=== PATIENT | female | born 1985 | race Two or more races ===

== ENCOUNTER 2024-11-10 20:02 | Inpatient (IN) | payer MEDICAID, SELFPAY ==
[2024-11-10 20:03] VITALS: BMI 31.2
[2024-11-10 20:30] VITALS: BP 115/79; PULSE 100; RESP 18; TEMP 37; O2SAT 95
--- NOTE | 2024-11-10 20:33 | XR_ITS ---
Examination: Transvaginal ultrasound of the pelvis, complete Technique: Transvaginal sonographic images pelvis performed using tomlinson scale imaging Exam date and time: November 10, 20242049 hours INDICATIONS: Left-sided pelvic pain with nausea beginning one year ago FINDINGS: Uterus 9.7 cm endometrial stripe 0.3 cm Multiple uterine fundal masses, the largest 15 x 14 x 15 mm Small benign cervical cyst Right ovary 2.8 cm arterial flow Left ovary 4.6 cm arterial flow 25 mm cyst IMPRESSION: Small areas of uterine fibroid degeneration, the largest in the fundus of uterus 15 x 14 x 15 mm Left ovarian simple cyst 24 x 19 x 25 mm.
--- NOTE | 2024-11-10 20:35 | PD.EDFMALE ---
ED Female Urogenital RME/HPI General Chief complaint: Abdominal Pain Stated complaint: L flank pain Time Seen by Provider: 11/10/24 20:33 Arrival date/time: 11/10/24 20:02 39F with no significant PMH presents to ED with 2 days of gradually onset L-pelvic pain. Patient denies N/V, diarrhea, dysuria, vaginal bleeding/discharge, and fall/trauma. Limitations: no limitations Related Data Allergies Allergy/AdvReac Type Severity Reaction Status Date / Time NKA* Allergy Uncoded 11/11/24 04:26 Review of Systems Review of Systems Systems Reviewed: All systems reviewed, normal except as documented Constitutional Constitutional: Reports system reviewed and no additional complaints, except as documented, Denies fever(s) and Denies headache(s) ENT Ears, Nose, Mouth, and Throat: Denies disequilibrium and Denies headache(s) Cardiovascular Cardiovascular: Reports system reviewed and no additional complaints, except as documented, Denies chest pain and Denies dyspnea Respiratory Respiratory: Reports system reviewed and no additional complaints, except as documented, Denies cough and Denies dyspnea Gastrointestinal Gastrointestinal: Reports system reviewed and no additional complaints, except as documented, Denies abdominal pain, Denies nausea and Denies vomiting Genitourinary Genitourinary: Reports as per HPI and Reports pelvic pain Neurologic Neurologic: Reports system reviewed and no additional complaints, except as documented, Denies confusion, Denies disequilibrium and Denies headache(s) Psychiatric Psychiatric: Denies confusion Past Medical History Social History SMOKING STATUS: Never smoker ED Exam General Limitations: Present no limitations General appearance: Present alert and in no apparent distress Head Head exam: Present atraumatic Eye Eye exam: Present normal appearance, PERRL and EOMI ENT ENT exam: Present normal exam, normal oropharynx and mucous membranes moist Neck Neck exam: Present normal inspection, full ROM and trachea midline Chest Chest inspection: Present normal inspection and symmetric chest wall rise Respiratory Respiratory exam: Present normal lung sounds bilaterally Cardiovascular Cardiovascular exam: Present regular rate, normal rhythm and normal heart sounds Abdominal Exam Abdominal exam: Present soft and normal bowel sounds Extremities Exam Extremities exam: Present normal inspection and full ROM Back Exam Back exam: Present normal inspection and full ROM Neurological Exam Neurological exam: Present alert, oriented X3 and CN II-XII intact Psychiatric Psychiatric exam: Present normal affect and normal mood Skin Skin exam: Present warm, dry, intact and normal color Course Quality Measures none Orders Category Date Time Status COVID-19 Screening Questionnaire NOW Care 11/11/24 17:[address] Screening NOW Care 11/10/24 22:27 Active Decision to Admit X1 Care 11/11/24 17:06 Active Insert IV NOW Care 11/10/24 22:[address] abdomen pelvis w con Stat Exams 11/10/24 22:27 Completed IR nephrostomy Stat Exams 11/11/24 Completed US transvaginal Stat Exams 11/10/24 20:33 Completed Blood Culture (Lab) Stat Lab 11/10/24 22:40 Received CBC Stat Lab 11/10/24 21:22 Completed CMP [Comprehensive Metabolic Panel] Stat Lab 11/10/24 21:22 Completed Drug Screen,Urine Stat Lab 11/10/24 22:29 Completed HCG Qualitative,Urine Stat Lab 11/10/24 22:29 Completed Lactate (Lactic Acid) Stat Lab 11/10/24 22:40 Completed Procalcitonin Stat Lab 11/10/24 22:40 Completed Urinalysis, C/S if Indicated Stat Lab 11/10/24 22:29 Completed Acetaminophen Tab [Tylenol Tab] Med 11/11/24 13:13 Discontinued 650 mg PO X1 ONE Ketorolac Inj [Toradol Inj] Med 11/11/24 01:36 Discontinued 30 mg IVP X1 ONE Lidocaine 1% Pf 30 ml [Xylocaine 1% Pf 30 ml] Med 11/11/24 14:33 Discontinued 30 ml .ROUTE .STK-MED ONE Lidocaine 1% Pf 30 ml [Xylocaine 1% Pf 30 ml] Med 11/11/24 14:56 Discontinued 5 ml INFL X1 ONE Morphine Inj Med 11/10/24 22:27 Discontinued 5 mg IVP X1 ONE NALOXONE INJ (Vial) [Narcan Inj (Vial)] Med 11/11/24 14:34 Discontinued 0.4 mg .ROUTE .STK-MED ONE Ondansetron Inj [Zofran Inj] Med 11/11/24 14:34 Discontinued 4 mg .ROUTE .STK-MED ONE Ondansetron Inj [Zofran Inj] Med 11/10/24 22:27 Discontinued 4 mg IV X1 ONE Piper/Tazo 3.375 gm Premix [Zosyn] Med 11/11/24 13:13 Discontinued 3.375 gm in 50 ml IV X1 Ringers Lactated 1000 ml [Lactated Ringers] 1,000 ml Med 11/11/24 03:01 Discontinued IV 125 mls/hr Sodium Chloride 0.9% 1000 ml [Ns] 1,000 ml Med 11/11/24 13:15 Active IV 125 mls/hr Sodium Chloride 0.9% 1000 ml [Ns] 1,000 ml Med 11/11/24 02:50 Discontinued IV 250 mls/hr Sodium Chloride 0.9% 1000 ml [Ns] 1,000 ml Med 11/10/24 22:27 Discontinued IV 999 mls/hr Tamsulosin HCl [Flomax] Med 11/11/24 04:35 Discontinued 0.4 mg PO X1 ONE cefTRIAXone [Rocephin] 2 gm Med 11/11/24 17:14 Active SODIUM CHLORIDE 0.9% (Popper) [Ns 0.9% (P)] 50 ml IV QDAY cefTRIAXone/D5w 1gm IV premix [Rocephin/D5w 1gm IV Med 11/11/24 01:41 Discontinued premix] 1 gm in 50 ml IV X1 fentaNYL INJ [Sublimaze Inj] Med 11/11/24 14:50 Discontinued 100 mcg IVP X1 ONE fentaNYL INJ [Sublimaze Inj] Med 11/11/24 14:34 Discontinued 200 mcg .ROUTE .STK-MED ONE Vital Signs Vital signs: Vital Signs Temperature 98.6 F 11/10/24 20:30 Pulse Rate 100 11/10/24 20:30 Respiratory Rate 18 11/10/24 20:30 Blood Pressure 115/79 11/10/24 20:30 Pulse Oximetry (%) 95 11/10/24 20:30 Oxygen Delivery Method Room Air 11/10/24 20:30 O2 at 95% on RA and WNLs Urogenital - Female MDM Narrative MDM Narrative:: 39F with no significant PMH presents to ED with 2 days of gradually onset L-pelvic pain. Patient denies N/V, diarrhea, dysuria, vaginal bleeding/discharge, and fall/trauma. Physical exam reveals no CVA or ab tenderness. Patient is afebrile, calm, and alert. Leukocytosis of 26k. Procal/lactate normal. CMP normal though Cr is 1.2. UA suggests UTI. CT reveals 1.4 x 0.7 L-sided kidney stone with hydronephrosis. Despite multiple attempts at transfer, patient was eventually admitted. Patient data External records reviewed:: None Clinical information provided by:: patient Social determinants that could affect healthcare access:: none Patient has the following chronic illnesses:: none How is presenting disease/condition affected by chronic disease/condition?: no chronic disease Evaluation data The following diagnostics were reviewed and interpreted by me:: lab results and radiology exam(s) Lab and/or radiology exams considered but not ordered:: ordered Interpretation Summary: above Medications / Prescriptions Medications or Prescriptions considered but not ordered:: ordered Medication administrations:: Medication Administration History Acetaminophen (Acetaminophen 325 Mg Tablet) 650 mg PO Q6H PRN PRN Reason: PAIN 1-3 OR FEVER > 100.4 Stop: 12/11/24 17:14 Sodium Chloride (Ns) 1,000 mls @ 125 mls/hr IV .Q8H [facility] Stop: 12/11/24 13:14 Last Admin: 11/11/24 13:41 Dose: 125 mls/hr Documented By: VISHAL Ceftriaxone Sodium 2 gm/ (Sodium Chloride) 50 mls @ 100 mls/hr IV QDAY CATRACHITA Stop: 11/18/24 17:13 Last Infusion: 11/11/24 17:56 Dose: Infused Documented By: Admin: 11/11/24 17:29 Dose: 100 mls/hr Documented By: VISHAL Morphine Sulfate (Morphine Sulf Inj 10 Mg/Ml Vial) 2 mg IVP Q6HR PRN PRN Reason: pain 6-10 Stop: 11/16/24 18:12 Ondansetron HCl (Ondansetron Inj 2 Mg/Ml Inj 2 Ml) 4 mg IVP Q6H PRN; Protocol PRN Reason: NAUSEA OR VOMITING Stop: 12/11/24 17:14 Discontinued Medications Acetaminophen (Acetaminophen 325 Mg Tablet) 650 mg PO X1 ONE Stop: 11/11/24 13:14 Last Admin: 11/11/24 13:39 Dose: 650 mg Documented By: VISHAL Fentanyl Citrate (Fentanyl Cit Inj 50 Mcg/Ml Amp 2ml) Confirm Administered Dose 200 mcg .ROUTE .STK-MED ONE Stop: 11/11/24 14:35 Last Admin: 11/11/24 14:54 Dose: Not Given Documented By: Non-Admin Reason: Duplicate Medication on eMAR Fentanyl Citrate (Fentanyl Cit Inj 50 Mcg/Ml Amp 2ml) 100 mcg IVP X1 ONE Stop: 11/11/24 14:51 Last Admin: 11/11/24 14:52 Dose: 100 mcg Documented By: Sodium Chloride (Ns) 1,000 mls @ 999 mls/hr IV .Q1H1M ONE Stop: 11/10/24 23:27 Last Infusion: 11/11/24 04:30 Dose: Infused Documented By: Admin: 11/11/24 00:24 Dose: 999 mls/hr Documented By: Ceftriaxone Sodium/Dextrose (Rocephin/D5w 1gm Iv Premix) 1 gm in 50 mls @ 100 mls/hr IV X1 ONE Stop: 11/11/24 02:10 Last Infusion: 11/11/24 03:54 Dose: Infused Documented By: Admin: 11/11/24 01:54 Dose: 100 mls/hr Documented By: NÉSTOR Sodium Chloride (Ns) 1,000 mls @ 250 mls/hr IV .Q4H ONE Stop: 11/11/24 06:49 Last Admin: 11/11/24 03:52 Dose: Not Given Documented By: RON Non-Admin Reason: Discontinued Lactated Ringer's (Lactated Ringers) 1,000 mls @ 125 mls/hr IV .Q8H ONE Stop: 11/11/24 11:00 Last Infusion: 11/11/24 08:44 Dose: Infused Documented By: Infusion: 11/11/24 05:34 Dose: 500 mls/hr Documented By: Admin: 11/11/24 04:30 Dose: 125 mls/hr Documented By: MIKE Piperacillin/Tazobactam/Dextrose (Zosyn) 3.375 gm in 50 mls @ 100 mls/hr IV X1 ONE Stop: 11/11/24 13:42 Last Infusion: 11/11/24 14:20 Dose: Infused Documented By: Admin: 11/11/24 13:40 Dose: 100 mls/hr Documented By: VISHAL Ketorolac Tromethamine (Ketorolac Inj 30 Mg/Ml Vial) 30 mg IVP X1 ONE Stop: 11/11/24 01:37 Last Admin: 11/11/24 01:53 Dose: 30 mg Documented By: NÉSTOR Ketorolac Tromethamine (Ketorolac Inj 30 Mg/Ml Vial) 30 mg IVP Q6HR PRN PRN Reason: PAIN SCALE 4-6 (Moderate Stop: 11/16/24 17:14 Lidocaine HCl (Lidocaine Inj Pf 1% 30 Ml Vial) Confirm Administered Dose 30 ml .ROUTE .STK-MED ONE Stop: 11/11/24 14:34 Last Admin: 11/11/24 14:53 Dose: Not Given Documented By: Non-Admin Reason: Duplicate Medication on eMAR Lidocaine HCl (Lidocaine Inj Pf 1% 30 Ml Vial) 5 ml INFL X1 ONE Stop: 11/11/24 14:57 Last Admin: 11/11/24 14:56 Dose: 5 ml Documented By: Comments: administer as local anesthetic Morphine Sulfate (Morphine Sulf Inj 10 Mg/Ml Vial) 5 mg IVP X1 ONE Stop: 11/10/24 22:28 Last Admin: 11/11/24 00:23 Dose: 5 mg Documented By: Naloxone HCl (Naloxone Inj 0.4 Mg/Ml Vial) Confirm Administered Dose 0.4 mg .ROUTE .STK-MED ONE Stop: 11/11/24 14:35 Last Admin: 11/11/24 14:54 Dose: Not Given Documented By: Non-Admin Reason: Duplicate Medication on eMAR Ondansetron HCl (Ondansetron Inj 2 Mg/Ml Inj 2 Ml) 4 mg IV X1 ONE; Protocol Stop: 11/10/24 22:28 Last Admin: 11/11/24 00:17 Dose: 4 mg Documented By: Ondansetron HCl (Ondansetron Inj 2 Mg/Ml Inj 2 Ml) Confirm Administered Dose 4 mg .ROUTE .STK-MED ONE Stop: 11/11/24 14:35 Last Admin: 11/11/24 14:54 Dose: Not Given Documented By: Non-Admin Reason: Duplicate Medication on eMAR Tamsulosin HCl (Tamsulosin Hcl 0.4 Mg Capsule) 0.4 mg PO X1 ONE Stop: 11/11/24 04:36 Last Admin: 11/11/24 04:42 Dose: 0.4 mg Documented By: MIKE above Consultations Consultation(s) initiated? (list below): Yes Diagnosis Urogenital Female Differential Diagnosis: urinary tract infection, bacterial vaginosis, trichomoniasis, cervicitis, ovarian cyst, vaginitis, ruptured ovarian cyst, cyst of Bartholin's gland, cystitis, dysmenorrhea and other (kidney stone, UTI) Most likely diagnosis given after review of the tests above:: Pyelonephritis and kidney stone Admission Indicated Admission indicated?: indicated Admission Request Was there a request for admission?: Yes Admission Attestation Admission request attestation: Discussed case with [IM Resident (see addendum note)] from Hospitalist service regarding admission. Discussed patients ED course, exam findings, labs, and radiology results. The Hospitalist [agrees] to accept the patient for admission. Disposition Plan Disposition Plan: Admit Discharge Plan Plan Patient Disposition: Admit Acute Care w/in Hospital Discharge Disposition comment: Stable Problem List Clinical Impression: Pyelonephritis Patient/Caregiver Discharge Instructions Other Activity Instructions:: Please follow up with Dr. Derick Hoover urologist on Saturday November 16, 2024 at 0900am. Address [address] [place] [address]. Office number [phone].
[2024-11-10 21:33] LABS: Basophils # (Auto) 0.1 Thou/mm3 (0.0-0.2); Basophils % (Auto) 0 % (0-2.5); Eosinophils % (Auto) 0 % (0-10); Hematocrit 40.5 % (36.0-46.0); Immature Granulocytes % (Auto) 1 % (0-0); Immature Granulocytes Auto 0.12 Thou/mm3 (0.00-0.00); Lymphocytes # (Auto) 1.6 Thou/mm3 (1.0-4.8); Lymphocytes % (Auto) 6 % (10-50); Mean Corpuscular HGB Conc 34.6 g/dl (31.0-37.0); Mean Corpuscular Hemoglobin 30.2 pg (25.0-35.0); Mean Corpuscular Volume 88 fL (80-100); Monocytes # (Auto) 1.2 Thou/mm3 (0.0-0.8); Monocytes % (Auto) 5 % (0-12); Neutrophils # (Auto) 23.2 Thou/mm3 (1.8-7.7); Neutrophils % (Auto) 89 % (37-80); Nucleated Red Blood Cell % 0 /100 WBC (0); Platelet Count 292 Thou/mm3 (140-440); RDW Standard Deviation 41.4 fL (36.4-46.3); Red Blood Count 4.63 Miln/mm3 (4.00-5.20); White Blood Count 26.2 Thou/mm3 (3.6-11.0)
[2024-11-10 22:05] LABS: Albumin, Serum 4.6 gm/dL (3.5-5.0); Albumin/Globulin Ratio 1.4 (1.2-2.2); Alkaline Phosphatase 67 U/L (46-116); Anion Gap 9 (7-16); Aspartate Amino Transferase 12 U/L (0-34); BUN/Creatinine Ratio 9 Ratio (12-20); Bilirubin,Total 1.1 mg/dL (0.3-1.2); Blood Urea Nitrogen 11 mg/dL (9-23); Calcium 8.7 mg/dL (8.3-10.6); Calcium (Corrected) 8.7 mg/dL (8.5-10.1); Carbon Dioxide 25.8 mMol/L (20.0-31.0); Chloride 104 mMol/L (98-107); Creatinine (Component) 1.2 mg/dL (0.6-1.3); Estimated Creatinine Clearance 56.5 mL/min (>60); Globulin 3.3 gm/dL (2.3-3.5); Glucose 139 mg/dL (74-106); Osmolality,Calculated 278 (275-295); Potassium 4.2 mMol/L (3.4-5.1); Sodium 139 mMol/L (136-145); Total Protein 7.9 gm/dL (5.7-8.2); eGFR 59 See Note
[2024-11-10 22:11] LABS: Alanine Aminotransferase 7 U/L (10-49)
--- NOTE | 2024-11-10 22:27 | XR_ITS ---
Examination: CT abdomen with intravenous contrast CT pelvis with intravenous contrast 2-D coronal reconstructions 2-D sagittal reconstructions Date and time of exam:November 11, 2024 0107 hours INDICATIONS: Onset of flank pain today. CTDI: vol (mGy) 14 DLP: (mGycm) 755 Technique: Multiple axial sections of the abdomen and pelvis have been obtained. 64 slice high-resolution scanner used. 3 mm axial sections have been obtained, post intravenous injection 60 cc Isovue 370 2-D sagittal, coronal reconstructions obtained. Low dose protocols were performed. One or more of the following dose reduction techniques were used; automated exposure control, adjustment of the mA and/or KV according to patient size, use of iterative reconstruction technique. Findings: No focal liver or splenic lesions Suspicious for gallstones No pancreatic mass [id number] left hydronephrosis, 12 mm left ureteropelvic junction calculus Aorta normal size Normal appendix No bowel obstruction 23 mm left ovarian cyst Urinary bladder intact The osseous structures are intact IMPRESSION: [id number] left hydronephrosis, 12 mm left ureteropelvic junction calculus
[2024-11-10 22:36] LABS: Collection Type, Urine Clean Catch
[2024-11-10 22:54] LABS: HCG Qualitative,Urine Negative
[2024-11-10 23:01] LABS: Bilirubin,Urine Negative (Negative); Blood,Urine 1+ (Negative); Clarity,Urine Turbid (Clear/Hazy); Color,Urine Yellow (Lt Yel-Yel); Culture Indicated,Urine Contaminated; Glucose, Urine Negative (Negative); Ketones,Urine Negative (Negative); Leukocyte Esterase,Urine Positive (Negative); Nitrite,Urine Negative (Negative); PH,Urine 6.5 (5.0-7.0); Protein,Urine 1+ (Neg - Trace); RBC,Urine 33 /hpf (0-3); Specific Gravity,Urine 1.047 (1.001-1.035); Squamous Epithelial Cell,Urine 17 /hpf (0-5); WBC,Urine 198 /hpf (0-5)
[2024-11-10 23:14] LABS: Amphetamine/Methamp Scrn,U Negative (Negative); Barbiturate Screen,Urine Negative (Negative); Benzodiazepines Screen,Urine Negative (Negative); Benzoylecgonine Screen, Ur Negative (Negative); Fentanyl Screen,Urine Negative (Negative); Opiate Screen,Urine Positive (Negative); THC Screen,Urine Negative (Negative)
[2024-11-10 23:17] LABS: Lactate (Lactic Acid) 1.4 mMol/L (0.4-2.0)
[2024-11-10 23:43] LABS: Procalcitonin 0.24 ng/ml (0.0-0.49)
[2024-11-11] VITALS (40 sets, daily range): BP systolic 86–142; BP diastolic 46–89; PULSE 85–117; RESP 16–21; TEMP 36.3–37.9; O2SAT 92–100; BMI 35.5
--- NOTE | 2024-11-11 | XR_ITS ---
Examination: Left percutaneous nephrostomy catheter placement Left nephrostogram Fluoroscopy AP abdomen 2 views Exam date and time: November 11, 2024 1359 hours INDICATIONS: Left hydronephrosis secondary to 12 mm left ureteropelvic junction calculus on CT stone study November 11, 2024, flank pain and leukocytosis today risk for sepsis TECHNIQUE AND FINDINGS: Informed consent provided. Timeout performed. Skin prepped over the left flank sterile drape applied maximum sterile barrier technique hand hygiene 1% lidocaine administered for local anesthesia Utilizing fluoroscopic guidance 21-gauge needle placed in the left renal collecting system Wire guide placed through the catheter followed by 5 Serbian catheter 0.35 wire guide placed through the 5 Serbian catheter, followed by dilator is and a 10 Serbian 25 cm pigtail nephrostomy drainage catheter in proper position Hand injection 10 cc Cystografin confirms proper placement of the nephrostomy drainage catheter Estimated blood loss 2 cc Patient stable condition at completion procedure IMPRESSION: Successful left percutaneous nephrostomy drainage catheter placement Left nephrostogram Fluoroscopy 2.2 minutes radiation dose 42.82 milligray 2 spot fluoroscopic abdomen films
[2024-11-11] MEDS: ONDANSETRON INJ 2 MG/ML INJ 2 ML 4 MG IV (00:17)
[2024-11-11] MEDS: MORPHINE SULF INJ 10 MG/ML VIAL 5 MG IVP (00:23)
[2024-11-11] MEDS: SODIUM CHLORIDE 0.9% 1000 ML 1,000 ML 999 ML IV (00:24)
[2024-11-11] MEDS: KETOROLAC INJ 30 MG/ML VIAL IVP (01:53)
[2024-11-11] MEDS: cefTRIAXone/D5w 1gm IV premix 1 GM/50 ML BAG IV (01:54)
--- NOTE | 2024-11-11 02:15 | PRELIM_ITS ---
CT abdomen and pelvis with intravenous contrast (axial sections with sagittal and coronal reformats): November 11, 2024 at 0107 hours Clinical History: Left-sided abdomen/pelvic pain. No prior study is available for comparison. Findings: The lung bases are clear. There is a 1.4 x 0.7 cm linear calculus at the left ureteropelvic junction with moderate hydronephrosis and periureteric/perinephric fat stranding. The liver, spleen, pancreas and adrenals are unremarkable.There are dependent hyperdensities in the gallbladder neck which may represent sludge/calculi without wall thickening or pericholecystic fluid. No evidence of bowel dilatation. The appendix is within normal limits. The urinary bladder is unremarkable. There is no free air or fluid. There is a 2.4 cm left ovarian cyst. Mild degenerative changes are identified in the spine. Impression: 1.4 x 0.7 cm linear calculus at the left ureteropelvic junction with moderate hydronephrosis. No other acute intra-abdominal/pelvic pathology. Other findings as above. Report Electronically Signed By: Lauro Anderson 11/11/2024 2:15:32 AM [EST]
--- NOTE | 2024-11-11 03:56 | PC.NURSE ---
I PLACED A CALL TO TRANSFER CENTER AND SPOKE WITH LULU. LULU INFORMED ME THAT THEY DO NOT HAVE UROLOGY TILL THE OF THIS MONTH.
[2024-11-11] MEDS: RINGERS LACTATED 1000 ML 1,000 ML 125 ML IV (04:30)
[2024-11-11] MEDS: TAMSULOSIN HCL 0.4 MG CAPSULE PO (04:42)
--- NOTE | 2024-11-11 05:33 | PC.NURSE ---
per. [place] chavarria change rate lr 500 ml/hr as he was concerned with b/p
--- NOTE | 2024-11-11 07:19 | PC.CC ---
Addendum entered by Walker Wood RN 11/11/24 14:41: I update follow up information on discharge which is Please follow up with Dr. Derick Hoover urologist on Saturday November 16, 2024 at 0900am. Address [address] [place] [address]. Office number [phone]. Addendum entered by Walker Wood RN 11/11/24 14:39: 1436 spoke to Rubén JEFFERY regarding the tranfser. Rubén stated pt will be admitted and IR will place a nephrostomy tube. Patient will follow up with Dr. Derick Hoover on Saturday November 16, 2024 at 0900am. Transfer is canceled. Addendum entered by Walker Wood RN 11/11/24 14:05: 1351 I called and informed Rubén JEFFERY. He stated he will discuss with ER physician and let me know on how to proceed. 1348 received call from [facility] that Dr. Derick Hoover accepted to see the pt as outpatient on Saturday November 16, 2024 at 0900am. Address [address] [place] [address]. Office number [phone]. She also stated she is going to send the referral to office so that they can schedule the pt for that day and time. She also stated Dr. Hoover recommended to start patient on Bacrim DS 1 tab PO twice a day for 10 days. Therefore, transfer is declined. 1332 received call from Azucena at [facility] that their urologist Dr. Arnold recommended to treat the infection first and pt can see urology as outpatient, IR can place a nephrstomy tube. Therefore, transfer is declined. Addendum entered by Walker Wood RN 11/11/24 13:12: 1307 Received call from [facility], spoke to Azucena and initiated the transfer. She stated she wants to speak to Mavis JEFFERY. Conference call connected. Addendum entered by Walker Wood RN 11/11/24 13:04: 1302 called [facility] to initiate the transfe, left VM. Addendum entered by Walker Wood RN 11/11/24 12:38: 1238 images pushed over to [facility] via [facility]. Addendum entered by Walker Wood RN 11/11/24 12:36: 1236 clinicals sent to [facility]. Addendum entered by Walker Wood RN 11/11/24 12:07: 1206 called [facility], spoke to [place] for transfer update. She stated currently the case is under MD review. Addendum entered by Walker Wood RN 11/11/24 10:24: 1021 called Clarisa at [facility]. Connected Clarisa with Rubén JEFFERY via conference call. [address] Pagan and he informed me Rubén JEFFERY is person for peer to peer. Addendum entered by Walker Wood RN 11/11/24 10:11: 1010 email clinicals to Warsaw at [facility]. Addendum entered by Walker Wood RN 11/11/24 10:05: 1002 Clarisa from [facility] called again and stated they are having technical difficulties with their fax and want me to send clinicals via email. I provided her with my email to request for clinicals. 1002 called Clarisa at [facility] to confirm if she got the fax and she stated didn't. I informed her it was send on regular fax and efax both. I have the confirmation it was sent at 0759. I confirmed both numbers which she stated it's correct. I resent the fax. I also tried connecting Dr. Pagan again with her, tried twice ER minute clerk for basic traffic, no answer. Addendum entered by Walker Wood RN 11/11/24 08:15: 0807 called [facility], spoke to [place] and initiated the transfer. She stated she wants to speak to Dr. Pagan. Dr. Pagan is not available at this time, unable to connect. Addendum entered by Walker Wood RN 11/11/24 07:55: 0755 clinicals sent to [facility]. Addendum entered by Walker Wood RN 11/11/24 07:50: 0729 CT abd/pevic report came back and it shows [id number] left hydronephrosis, 12 mm left ureteropelvic junction calculus. Original Note: 0724 spoke to Shirley at [facility], pt is declined due to capacity. 0722 From the notes, I found pt is declined by [facility] due to no services available. 0719 spoke to ED charge nurse, pt needs to be transferred for urology services. Pt has 4-5 mm calculus in left urethral vesicular junction.
--- NOTE | 2024-11-11 08:14 | EDNOTE_ITS ---
ED Abdominal Pain RME/HPI General Chief Complaint: Abdominal Pain Stated complaint: L flank pain Time seen by provider: 11/10/24 20:33 Arrival date/time: 11/10/24 20:02 39-year-old female with no known medical history presents to the emergency room with a chief complaint of left flank pain and groin pain x 3 days Source: patient Mode of arrival: ambulatory Limitations: no limitations Related Data Allergies Allergy/AdvReac Type Severity Reaction Status Date / Time NKA* Allergy Uncoded 11/11/24 04:26 Review of Systems Review of Systems Systems Reviewed: All systems reviewed, normal except as documented Constitutional Constitutional: Reports system reviewed and no additional complaints, except as documented, Reports fatigue, Reports fever(s), Denies headache(s) and Reports weakness Eyes Eyes: Reports system reviewed and no additional complaints, except as documented, Denies blurry vision and Denies change in vision ENT Ears, Nose, Mouth, and Throat: Reports system reviewed and no additional complaints, except as documented, Denies otalgia, Denies headache(s), Denies nasal congestion, Denies throat swelling and Denies vertigo Cardiovascular Cardiovascular: Reports system reviewed and no additional complaints, except as documented, Denies chest pain, Denies dyspnea and Denies dyspnea on exertion Respiratory Respiratory: Reports system reviewed and no additional complaints, except as documented, Denies chest congestion, Denies cough, Denies dyspnea, Denies dyspnea on exertion and Denies wheezing Gastrointestinal Gastrointestinal: Reports system reviewed and no additional complaints, except as documented, Denies abdominal pain, Denies cramping, Denies nausea and Denies vomiting Genitourinary Genitourinary: Reports system reviewed and no additional complaints, except as documented Musculoskeletal Musculoskeletal: Reports system reviewed and no additional complaints, except as documented and Reports back pain Integumentary/Breasts Skin/Breast: Reports system reviewed and no additional complaints, except as documented and Denies wounds Neurologic Neurologic: Reports system reviewed and no additional complaints, except as documented, Denies confusion, Denies headache(s), Denies lack of coordination, Denies vertigo and Reports weakness Psychiatric Psychiatric: Reports system reviewed and no additional complaints, except as d ocumented, Denies anxiety, Denies confusion, Denies depression, Denies paranoia, Denies suicidal ideation and Denies tactile hallucinations Endocrine Endocrine: Reports system reviewed and no additional complaints, except as documented and Reports fatigue Hematologic/Lymphatic Hematologic/Lymphatic: Reports system reviewed and no additional complaints, except as documented and Denies lymphadenopathy Allergic/Immunologic Allergic/Immunologic: Reports system reviewed and no additional complaints, except as documented, Denies throat swelling, Denies urticaria and Denies wheezing Past Medical History Past Medical History CARDIAC: Negative Cardiac Disorders or Congestive Heart Failure RESPIRATORY: Negative Chronic Obstructive Pulmonary Disease (COPD) or Asthma GENITOURINARY: Negative Renal Disease ENDOCRINE: Negative Diabetes Mellitus Type 1 or Diabetes Mellitus Type 2 HEMATOLOGIC: Negative Sickle Cell Disease Social History SMOKING STATUS: Never smoker ED Exam General Limitations: Present no limitations General appearance: Present alert and in no apparent distress Head Head exam: Present atraumatic Eye Eye exam: Present normal appearance, PERRL and EOMI ENT ENT exam: Present normal exam, normal oropharynx and mucous membranes moist Neck Neck exam: Present normal inspection, full ROM and trachea midline Chest Chest inspection: Present normal inspection and symmetric chest wall rise Respiratory Respiratory exam: Present normal lung sounds bilaterally Cardiovascular Cardiovascular exam: Present regular rate, normal rhythm and normal heart sounds Abdominal Exam Abdominal exam: Present soft and normal bowel sounds Extremities Exam Extremities exam: Present normal inspection and full ROM Back Exam Back exam: Present normal inspection, full ROM, CVA tenderness (L) and vertebral tenderness Neurological Exam Neurological exam: Present alert, oriented X3 and CN II-XII intact Psychiatric Psychiatric exam: Present normal affect and normal mood Skin Skin exam: Present warm, dry, intact and normal color Course Quality Measures none Orders Category Date Time Status Admit to Inpatient Status Routine Admission 11/11/24 17:14 Active Patient Condition Routine Admission 11/11/24 17:14 Ordered COVID-19 Screening Questionnaire NOW Care 11/11/24 17:[address] Screening NOW Care 11/10/24 22:27 Active Decision to Admit X1 Care 11/11/24 17:06 Active Insert IV NOW Care 11/10/24 22:26 Active Notify provider NEEDED Care 11/11/24 17:14 Active Sequential Compression Device QSHIFT Care 11/11/24 17:15 Active Diet Regular Diet 11/11/[address] abdomen pelvis w con Stat Exams 11/10/24 22:27 Completed IR nephrostomy Stat Exams 11/11/24 Completed US transvaginal Stat Exams 11/10/24 20:33 Completed A1C [Glycohemoglobin w (eAG)] AM DRAW Lab 11/12/24 05:00 Ordered Basic Metabolic Panel AM DRAW Lab 11/12/24 05:00 Ordered Basic Metabolic Panel AM DRAW Lab 11/13/24 05:00 Ordered Basic Metabolic Panel AM DRAW Lab 11/14/24 05:00 Ordered Blood Culture (Lab) Stat Lab 11/10/24 22:40 Received CBC AM DRAW Lab 11/12/24 05:00 Ordered CBC AM DRAW Lab 11/13/24 05:00 Ordered CBC AM DRAW Lab 11/14/24 05:00 Ordered CBC Stat Lab 11/10/24 21:22 Completed CMP [Comprehensive Metabolic Panel] Stat Lab 11/10/24 21:22 Completed Drug Screen,Urine Stat Lab 11/10/24 22:29 Completed HCG Qualitative,Urine Stat Lab 11/10/24 22:29 Completed Lactate (Lactic Acid) Stat Lab 11/10/24 22:40 Completed Lipid Panel AM DRAW Lab 11/12/24 05:00 Ordered Magnesium AM DRAW Lab 11/12/24 05:00 Ordered Magnesium AM DRAW Lab 11/13/24 05:00 Ordered Magnesium AM DRAW Lab 11/14/24 05:00 Ordered Phosphorous AM DRAW Lab 11/12/24 05:00 Ordered Phosphorous AM DRAW Lab 11/13/24 05:00 Ordered Phosphorous AM DRAW Lab 11/14/24 05:00 Ordered Procalcitonin Stat Lab 11/10/24 22:40 Completed Urinalysis, C/S if Indicated Stat Lab 11/10/24 22:29 Completed Urine Culture Stat Lab 11/11/24 17:12 Ordered Acetaminophen Tab [Tylenol Tab] Med 11/11/24 17:15 Ordered 650 mg PO Q6H PRN Acetaminophen Tab [Tylenol Tab] Med 11/11/24 13:13 Discontinued 650 mg PO X1 ONE Ketorolac Inj [Toradol Inj] Med 11/11/24 17:15 Ordered 30 mg IVP Q6HR PRN Ketorolac Inj [Toradol Inj] Med 11/11/24 01:36 Discontinued 30 mg IVP X1 ONE Lidocaine 1% Pf 30 ml [Xylocaine 1% Pf 30 ml] Med 11/11/24 14:33 Discontinued 30 ml .ROUTE .STK-MED ONE Lidocaine 1% Pf 30 ml [Xylocaine 1% Pf 30 ml] Med 11/11/24 14:56 Discontinued 5 ml INFL X1 ONE Morphine Inj Med 11/10/24 22:27 Discontinued 5 mg IVP X1 ONE NALOXONE INJ (Vial) [Narcan Inj (Vial)] Med 11/11/24 14:34 Discontinued 0.4 mg .ROUTE .STK-MED ONE Ondansetron Inj [Zofran Inj] Med 11/11/24 14:34 Discontinued 4 mg .ROUTE .STK-MED ONE Ondansetron Inj [Zofran Inj] Med 11/10/24 22:27 Discontinued 4 mg IV X1 ONE Ondansetron Inj [Zofran Inj] Med 11/11/24 17:15 Ordered 4 mg IVP Q6H PRN Piper/Tazo 3.375 gm Premix [Zosyn] Med 11/11/24 13:13 Discontinued 3.375 gm in 50 ml IV X1 Ringers Lactated 1000 ml [Lactated Ringers] 1,000 ml Med 11/11/24 03:01 Discontinued IV 125 mls/hr Sodium Chloride 0.9% 1000 ml [Ns] 1,000 ml Med 11/11/24 13:15 Active IV 125 mls/hr Sodium Chloride 0.9% 1000 ml [Ns] 1,000 ml Med 11/11/24 02:50 Discontinued IV 250 mls/hr Sodium Chloride 0.9% 1000 ml [Ns] 1,000 ml Med 11/10/24 22:27 Discontinued IV 999 mls/hr Tamsulosin HCl [Flomax] Med 11/11/24 04:35 Discontinued 0.4 mg PO X1 ONE cefTRIAXone [Rocephin] 2 gm Med 11/11/24 17:14 Active SODIUM CHLORIDE 0.9% (Popper) [Ns 0.9% (P)] 50 ml IV QDAY cefTRIAXone/D5w 1gm IV premix [Rocephin/D5w 1gm IV Med 11/11/24 01:41 Discontinued premix] 1 gm in 50 ml IV X1 fentaNYL INJ [Sublimaze Inj] Med 11/11/24 14:50 Discontinued 100 mcg IVP X1 ONE fentaNYL INJ [Sublimaze Inj] Med 11/11/24 14:34 Discontinued 200 mcg .ROUTE .STK-MED ONE Code Status Routine Oth 11/11/24 17:14 Ordered Vital Signs Vital signs: Vital Signs Temperature 98.6 F 11/10/24 20:30 Pulse Rate 100 11/10/24 20:30 Respiratory Rate 18 11/10/24 20:30 Blood Pressure 115/79 11/10/24 20:30 Pulse Oximetry (%) 95 11/10/24 20:30 Oxygen Delivery Method Room Air 11/10/24 20:30 O2 saturation 95% within normal limits Abdominal Pain MDM MDM Narrative MDM Narrative:: 39-year-old female with no known medical history presents to the emergency room with a chief complaint of left flank pain and groin pain x 3 days The patient is hemodynamically stable. The patient was signed out to me by my colleague STUDIO ARTIST BATEMAN The CT abdomen and pelvis of this patient shows a 12 mm stone to the left ureter. The stone is causing the patient to have left-sided hydronephrosis. The patient has a white count of 26.2. Multiple attempts were made to transfer this patient for urology. [facility] in [place] called me back and according to the transfer nurse Dr. Villeda the urologist at [facility] states that this patient does not need transfer and instead needs IR nephrostomy which could be done here as he review. He recommends treating the infection and to follow-up with urology as an outpatient. I spoke to Dr. Hart our IR DrLuli And he will do the nephrostomy tube. The transfer nurse then called me and said that urologist Keenan Hoover will see the patient on November 16Thursday at 9 AM. The phone number is [phone]. The address is [address] [place] [address] Hoover also recommended the patient be put on Bactrim p.o. twice daily for [address] Dr[address] Ian Lawrence was contacted for admission and they will admit the patient for IV antibiotics. Patient data External records reviewed:: [facility] previous records Clinical information provided by:: patient Social determinants that could affect healthcare access:: none Patient has the following chronic illnesses:: No chronic illness How is presenting disease/condition affected by chronic disease/condition?: no chronic disease Evaluation data The following diagnostics were reviewed and interpreted by me:: lab results and radiology exam(s) Lab and/or radiology exams considered but not ordered:: Labs and radiology exams considered and ordered Interpretation Summary: CT abdomen and pelvis-Findings: No focal liver or splenic lesions Suspicious for gallstones No pancreatic mass [id number] left hydronephrosis, 12 mm left ureteropelvic junction calculus Aorta normal size Normal appendix No bowel obstruction 23 mm left ovarian cyst Urinary bladder intact The osseous structures are intact IMPRESSION: [id number] left hydronephrosis, 12 mm left ureteropelvic junction calculus Medications / Prescriptions Medications or Prescriptions considered but not ordered:: Medication given Medication administrations:: Medication Administration History Acetaminophen (Acetaminophen 325 Mg Tablet) 650 mg PO Q6H PRN PRN Reason: PAIN 1-3 OR FEVER > 100.4 Stop: 12/11/24 17:14 Sodium Chloride (Ns) 1,000 mls @ 125 mls/hr IV .Q8H CATRACHITA Stop: 12/11/24 13:14 Last Admin: 11/11/24 13:41 Dose: 125 mls/hr Documented By: VISHAL Ceftriaxone Sodium 2 gm/ (Sodium Chloride) 50 mls @ 100 mls/hr IV QDAY CATRACHITA Stop: 11/18/24 17:13 Ketorolac Tromethamine (Ketorolac Inj 30 Mg/Ml Vial) 30 mg IVP Q6HR PRN PRN Reason: PAIN SCALE 4-6 (Moderate Stop: 11/16/24 17:14 Ondansetron HCl (Ondansetron Inj 2 Mg/Ml Inj 2 Ml) 4 mg IVP Q6H PRN; Protocol PRN Reason: NAUSEA OR VOMITING Stop: 12/11/24 17:14 Discontinued Medications Acetaminophen (Acetaminophen 325 Mg Tablet) 650 mg PO X1 ONE Stop: 11/11/24 13:14 Last Admin: 11/11/24 13:39 Dose: 650 mg Documented By: VISHAL Fentanyl Citrate (Fentanyl Cit Inj 50 Mcg/Ml Amp 2ml) Confirm Administered Dose 200 mcg .ROUTE .STK-MED ONE Stop: 11/11/24 14:35 Last Admin: 11/11/24 14:54 Dose: Not Given Documented By: Non-Admin Reason: Duplicate Medication on eMAR Fentanyl Citrate (Fentanyl Cit Inj 50 Mcg/Ml Amp 2ml) 100 mcg IVP X1 ONE Stop: 11/11/24 14:51 Last Admin: 11/11/24 14:52 Dose: 100 mcg Documented By: Sodium Chloride (Ns) 1,000 mls @ 999 mls/hr IV .Q1H1M ONE Stop: 11/10/24 23:27 Last Infusion: 11/11/24 04:30 Dose: Infused Documented By: Admin: 11/11/24 00:24 Dose: 999 mls/hr Documented By: Ceftriaxone Sodium/Dextrose (Rocephin/D5w 1gm Iv Premix) 1 gm in 50 mls @ 100 mls/hr IV X1 ONE Stop: 11/11/24 02:10 Last Infusion: 11/11/24 03:54 Dose: Infused Documented By: Admin: 11/11/24 01:54 Dose: 100 mls/hr Documented By: NÉSTOR Sodium Chloride (Ns) 1,000 mls @ 250 mls/hr IV .Q4H ONE Stop: 11/11/24 06:49 Last Admin: 11/11/24 03:52 Dose: Not Given Documented By: RON Non-Admin Reason: Discontinued Lactated Ringer's (Lactated Ringers) 1,000 mls @ 125 mls/hr IV .Q8H ONE Stop: 11/11/24 11:00 Last Infusion: 11/11/24 08:44 Dose: Infused Documented By: Infusion: 11/11/24 05:34 Dose: 500 mls/hr Documented By: Admin: 11/11/24 04:30 Dose: 125 mls/hr Documented By: MIKE Piperacillin/Tazobactam/Dextrose (Zosyn) 3.375 gm in 50 mls @ 100 mls/hr IV X1 ONE Stop: 11/11/24 13:42 Last Infusion: 11/11/24 14:20 Dose: Infused Documented By: Admin: 11/11/24 13:40 Dose: 100 mls/hr Documented By: VISHAL Ketorolac Tromethamine (Ketorolac Inj 30 Mg/Ml Vial) 30 mg IVP X1 ONE Stop: 11/11/24 01:37 Last Admin: 11/11/24 01:53 Dose: 30 mg Documented By: NÉSTOR Lidocaine HCl (Lidocaine Inj Pf 1% 30 Ml Vial) Confirm Administered Dose 30 ml .ROUTE .STK-MED ONE Stop: 11/11/24 14:34 Last Admin: 11/11/24 14:53 Dose: Not Given Documented By: Non-Admin Reason: Duplicate Medication on eMAR Lidocaine HCl (Lidocaine Inj Pf 1% 30 Ml Vial) 5 ml INFL X1 ONE Stop: 11/11/24 14:57 Last Admin: 11/11/24 14:56 Dose: 5 ml Documented By: Comments: administer as local anesthetic Morphine Sulfate (Morphine Sulf Inj 10 Mg/Ml Vial) 5 mg IVP X1 ONE Stop: 11/10/24 22:28 Last Admin: 11/11/24 00:23 Dose: 5 mg Documented By: Naloxone HCl (Naloxone Inj 0.4 Mg/Ml Vial) Confirm Administered Dose 0.4 mg .ROUTE .STK-MED ONE Stop: 11/11/24 14:35 Last Admin: 11/11/24 14:54 Dose: Not Given Documented By: Non-Admin Reason: Duplicate Medication on eMAR Ondansetron HCl (Ondansetron Inj 2 Mg/Ml Inj 2 Ml) 4 mg IV X1 ONE; Protocol Stop: 11/10/24 22:28 Last Admin: 11/11/24 00:17 Dose: 4 mg Documented By: Ondansetron HCl (Ondansetron Inj 2 Mg/Ml Inj 2 Ml) Confirm Administered Dose 4 mg .ROUTE .STK-MED ONE Stop: 11/11/24 14:35 Last Admin: 11/11/24 14:54 Dose: Not Given Documented By: Non-Admin Reason: Duplicate Medication on eMAR Tamsulosin HCl (Tamsulosin Hcl 0.4 Mg Capsule) 0.4 mg PO X1 ONE Stop: 11/11/24 04:36 Last Admin: 11/11/24 04:42 Dose: 0.4 mg Documented By: MIKE Medication given Consultations Consultation(s) initiated? (list below): Yes Consultation #1 (Physician, Specialty, Details): Dr. Villeda, urologist at [facility] Time: 14:00 Consultation #2 (Physician, Specialty, Details): Dr. Hoover urologist at [place] Time: 14:30 Diagnosis Differential diagnosis abdominal pain: abdominal pain, calculus of kidney, gastroenteritis and other (Pyelonephritis) Most likely diagnosis given after review of the tests above:: Pyelonephritis Admission Indicated Admission indicated?: indicated Admission Request Was there a request for admission?: Yes Admission Attestation Admission request attestation: Discussed case with [] from Hospitalist service regarding admission. Discussed patients ED course, exam findings, labs, and radiology results. The Hospitalist [agrees,declines] to accept the patient for admission. Disposition Plan Disposition Plan: Admit Discharge Plan Plan Patient Disposition: Admit Acute Care w/in Hospital Discharge Disposition comment: Stable Prescriptions/Referrals Referrals: No Primary/Family,Physician [Primary Care Provider] - In 1 week Problem List Clinical Impression: Pyelonephritis Patient/Caregiver Discharge Instructions Other Activity Instructions:: Please follow up with Dr. Derick Hoover urologist on Saturday November 16, 2024 at 0900am. Address [address] [place] [address]. Office number [phone]. Print Language: Macedonian Stand Alone Forms: [employer] Award Info., Patient Portal Info Letter
[2024-11-11] MEDS: ACETAMINOPHEN 325 MG TABLET 650 MG PO ×2 (13:39→22:28)
[2024-11-11] MEDS: PIPER/TAZO 3.375 GM PREMIX 3.375 GM/50 ML BAG IV (13:40)
[2024-11-11] MEDS: SODIUM CHLORIDE 0.9% 1000 ML 1,000 ML 125 ML IV (13:41)
[2024-11-11] MEDS: fentaNYL CIT INJ 50 mCg/ML AMP 2ML 100 MCG IVP (14:52)
[2024-11-11] MEDS: LIDOCAINE INJ PF 1% 30 ML VIAL 5 ML INFL (14:56)
--- NOTE | 2024-11-11 15:00 | PC.NURSE ---
At this time, report was given to Yoni ELLIOTT during nephrostomy tube placement procedure. Patient in IR at 1430, Time out at 1456, procedure started at 1456, 100 mcg of Fentanyl administered by this proposal lead writer. Patient in stable conditions, No acute distress noted, denies pain and discomfort. No acute chnage sor deviations from patient's baseline
--- NOTE | 2024-11-11 15:32 | PC.NURSE ---
Report received from Giovanny ELLIOTT and Took over patient for Giovanny ELLIOTT at 1500, Vital signs documented in chart, No medications were given by me during procedure, patient was doing fine during procedure, no signs of distress or complications, nephrostomy tube inserted, Per MD Gautam he wanted me to take patient back to ER, patient is stable, Report given to Devendra ELLIOTT, patient stable
[2024-11-11] MEDS: cefTRIAXone 2 GM in SODIUM CHLORIDE 0.9% (Popper) 50 ML IV (17:29)
--- NOTE | 2024-11-11 17:30 | PD.RESHP ---
Documentation for date of: 11/11/24 [facility] History of Present Illness History of present illness: Soha Goldstein is a 39-year-old female with no significant past medical history who presents with left flank pain for the last few days with associated fever, chills, sweats, nausea and vomiting. States that flank pain radiates to left groin and has cramping in lower quadrants but denies gross hematuria or dysuria. Of note, she went to the ED in [place] a couple of years ago where CT scan was and she does not member being told about any stones at that time. In May 2024 she felt left flank pain and went to urgent care and was given pain medications and antibiotics. Since May, she has felt intermittent left flank pain but has never gone this severe, which prompted her to come to the ED. She also used to take a supplement but ran out within the last week and cannot recall what the supplement was. In the ED, vital signs stable but she did have a temperature of 100.2 ?F around noon, blood pressures stable but on softer side (90s/50s). WBC 26, creatinine 1.2 (no previous labs), Pro-Omega negative. UA showed turbid urine, 1+ protein, 1+ blood, 33 RBC, 200 WBC, LE positive. CT A/P showed mild to moderate left hydronephrosis with a 12 mm left ureteropelvic junction calculus and a 23 mm left ovarian cyst. Multiple attempts were made to transfer patient to different facility and eventually Dr. Villeda at [facility] in [place] stated the patient does not need transfer and instead needs a nephrostomy tube with IV antibiotics and follow-up outpatient. Nephrostomy tube was placed and patient will be admitted for further management. In ED received ceftriaxone x 1, Zosyn x 1, and 3 L IV fluid. PMHx: none Medications: none FHx: kidney stones in parents and siblings SHx: denies smoking, drinking, and illicit drug use PSHx: none Exam Vital Signs Temp Pulse Resp BP Pulse Ox O2 Del Method 99.1 F 86 18 93/56 L 98 Room Air 11/11/24 17:00 11/11/24 16:16 11/11/24 16:16 11/11/24 17:00 11/11/24 17:00 11/11/24 16:16 Narrative Exam General: AOx3, no acute distress, able to speak full sentences HEENT: NC/AT, mucous membranes moist, bilateral sclera anicteric Cardiovascular: regular rate and rhythm, S1/S2 present, no murmurs appreciated Pulmonary: clear to auscultation bilaterally, no rales/rhonchi/wheezes Abdominal: soft, non-distended, no rebound/guarding, normal bowel sounds present Musculoskeletal: mild tenderness in left flank, normal ROM, no peripheral edema Skin: left-sided nephrostomy tube placed, warm and dry, intact, no rashes Neuro: CN II-XII intact, no focal deficits Results: Labs 11/12/24 05:03 11/12/24 05:03 Labs: Short CBC 11/10/24 Range/Units 21:22 WBC 26.2 H (3.6-11.0) Thou/mm3 Hgb 14.0 (12.0-16.0) g/dL Hct 40.5 (36.0-46.0) % Plt Count 292 (140-440) Thou/mm3 BMP 11/10/24 21:22 Sodium 139 Potassium 4.2 Chloride 104 Carbon Dioxide 25.8 BUN 11 Creatinine 1.2 Glucose 139 H Calcium 8.7 Liver Function 11/10/24 Range/Units 21:22 Total Bilirubin 1.1 (0.3-1.2) mg/dL AST 12 (0-34) U/L ALT 7 L (10-49) U/L Alkaline Phosphatase 67 (46-116) U/L Albumin 4.6 (3.5-5.0) gm/dL Urine 11/10/24 Range/Units 22:29 Urine Color Yellow (Lt Yel-Yel) Urine Clarity Turbid A (Clear/Hazy) Urine pH 6.5 (5.0-7.0) Ur Specific [place] 1.047 H (1.001-1.035) Urine Protein 1+ A (Neg - Trace) Urine Glucose (UA) Negative (Negative) Quality Measures Quality Measures none Medications Home Medications and Allergies Home Medications ?Medication ?Instructions ?Recorded ?Confirmed ?Type No Known Home Medications 11/11/24 11/11/24 History Allergies Allergy/AdvReac Type Severity Reaction Status Date / Time NKA* Allergy Uncoded 11/11/24 04:26 Visit Medications Acetaminophen (Acetaminophen 325 Mg Tablet) 650 mg PO Q6H PRN PRN Reason: PAIN 1-3 OR FEVER > 100.4 Stop: 12/11/24 17:14 Sodium Chloride (Ns) 1,000 mls @ 125 mls/hr IV .Q8H CATRACHITA Stop: 12/11/24 13:14 Last Admin: 11/11/24 13:41 Dose: 125 mls/hr Ceftriaxone Sodium 2 gm/ (Sodium Chloride) 50 mls @ 100 mls/hr IV QDAY CATRACHITA Stop: 11/18/24 17:13 Ketorolac Tromethamine (Ketorolac Inj 30 Mg/Ml Vial) 30 mg IVP Q6HR PRN PRN Reason: PAIN SCALE 4-6 (Moderate Stop: 11/16/24 17:14 Ondansetron HCl (Ondansetron Inj 2 Mg/Ml Inj 2 Ml) 4 mg IVP Q6H PRN; Protocol PRN Reason: NAUSEA OR VOMITING Stop: 12/11/24 17:14 Discontinued Medications Acetaminophen (Acetaminophen 325 Mg Tablet) 650 mg PO X1 ONE Stop: 11/11/24 13:14 Last Admin: 11/11/24 13:39 Dose: 650 mg Fentanyl Citrate (Fentanyl Cit Inj 50 Mcg/Ml Amp 2ml) 100 mcg IVP X1 ONE Stop: 11/11/24 14:51 Last Admin: 11/11/24 14:52 Dose: 100 mcg Sodium Chloride (Ns) 1,000 mls @ 999 mls/hr IV .Q1H1M ONE Stop: 11/10/24 23:27 Last Infusion: 11/11/24 04:30 Dose: Infused Ceftriaxone Sodium/Dextrose (Rocephin/D5w 1gm Iv Premix) 1 gm in 50 mls @ 100 mls/hr IV X1 ONE Stop: 11/11/24 02:10 Last Infusion: 11/11/24 03:54 Dose: Infused Sodium Chloride (Ns) 1,000 mls @ 250 mls/hr IV .Q4H ONE Stop: 11/11/24 06:49 Last Admin: 11/11/24 03:52 Dose: Not Given Lactated Ringer's (Lactated Ringers) 1,000 mls @ 125 mls/hr IV .Q8H ONE Stop: 11/11/24 11:00 Last Infusion: 11/11/24 08:44 Dose: Infused Piperacillin/Tazobactam/Dextrose (Zosyn) 3.375 gm in 50 mls @ 100 mls/hr IV X1 ONE Stop: 11/11/24 13:42 Last Infusion: 11/11/24 14:20 Dose: Infused Ketorolac Tromethamine (Ketorolac Inj 30 Mg/Ml Vial) 30 mg IVP X1 ONE Stop: 11/11/24 01:37 Last Admin: 11/11/24 01:53 Dose: 30 mg Lidocaine HCl (Lidocaine Inj Pf 1% 30 Ml Vial) 5 ml INFL X1 ONE Stop: 11/11/24 14:57 Last Admin: 11/11/24 14:56 Dose: 5 ml Morphine Sulfate (Morphine Sulf Inj 10 Mg/Ml Vial) 5 mg IVP X1 ONE Stop: 11/10/24 22:28 Last Admin: 11/11/24 00:23 Dose: 5 mg Ondansetron HCl (Ondansetron Inj 2 Mg/Ml Inj 2 Ml) 4 mg IV X1 ONE; Protocol Stop: 11/10/24 22:28 Last Admin: 11/11/24 00:17 Dose: 4 mg Tamsulosin HCl (Tamsulosin Hcl 0.4 Mg Capsule) 0.4 mg PO X1 ONE Stop: 11/11/24 04:36 Last Admin: 11/11/24 04:42 Dose: 0.4 mg Assessment & Plan Plan Soha Goldstein is a 39-year-old female with no significant past medical history who presents with left flank pain for the last few days and admitted for further management of 12 mm uretopelvic stone s/p nephrostomy tube placement. #Complicated UTI #12 mm left uretopelvc junction calculus s/p nephrostomy tube placement #Left-sided hydronephrosis #? Pyelonephritis Presents with left flank pain for the last few days with associated fever, chills, sweats, nausea and vomiting. Had temp of 100.2 ?F around noon, blood pressures stable but on softer side (90s/50s). WBC 26, creatinine 1.2 (no previous labs), Pro-Omega negative. UA showed turbid urine, 1+ protein, 1+ blood, 33 RBC, 200 WBC, LE positive. CT A/P showed mild to moderate left hydronephrosis with a 12 mm left ureteropelvic junction calculus and a 23 mm left ovarian cyst. Multiple attempts were made to transfer patient to different facility and eventually Dr. Villeda at [facility] in [place] stated the patient does not need transfer and instead needs a nephrostomy tube with IV antibiotics and follow-up outpatient. ? Status post left-sided nephrostomy tube placement ? Ceftriaxone 2 g IV daily ? Follow-up urine cultures ? NS at 125 cc/h ? Follow-up outpatient with Dr. Keenan Hoover on 11/16/2024 at 9 AM ([phone], [address] [place] [id number]) ? Zofran for nausea ? Morphine 2 mg IV every 6 hours as needed for pain #Left ovarian simple cyst #Uterine fibroid degeneration ? Follow-up with [facility] outpatient Hospital management: Disposition: IV antibiotics, pending cultures Fluids: NS at 125 cc/hr Diet: regular Lines: PIV, nephrostomy tube DVT prophylaxis: SCDs GI prophylaxis: not indicated CODE STATUS: full code ----- Plan discussed with attending physician Dr. Joey Lawrence MD PGY-1 Internal Medicine Attending Provider Attestation/Addendum I attest that I was physically present for the evaluation, physical examination, lab and imaging review of the patient with the residents. I discussed the case with the residents and agree with the findings and plans of care as documented above. 39 years old female without known past medical history presented with left flank pain for the last few days associated with fevers, chills, night sweats, nausea and vomiting. Was found to have temperature of 100.2 ?F in the ED, WBC of 26, creatinine 1.2. UA showed turbid urine with 200 WBC and positive leukocyte esterase. CT abdomen/pelvis showed moderate left hydronephrosis with 12 mm ureteropelvic junction calculus and a 23 mm left ovarian cyst. Attempts were made to transfer the patient for urology services. ED physician was able to discuss the case with urology from [facility], who recommended nephrostomy tube and IV antibiotics for UTI, Followed by outpatient urology referral. After examination of the patient and review of the clinical data I feel that this patient needs admission to the hospital for further treatment/evaluation of complicated UTI in setting of 12 mm left ureteropelvic junction calculus status post nephrostomy tube placement. Yola Cook MD
[2024-11-11] MEDS: MORPHINE SULF INJ 10 MG/ML VIAL 2 MG IVP (18:47)
[2024-11-12] VITALS: BP 94/55; PULSE 91; RESP 18; TEMP 36.6; O2SAT 96
[2024-11-12] MEDS: SODIUM CHLORIDE 0.9% 1000 ML 1,000 ML 125 ML IV ×2 (00:40→10:12)
[2024-11-12 04:00] VITALS: BP 99/59; PULSE 108; RESP 18; TEMP 36.3; O2SAT 96
[2024-11-12 06:01] LABS: Basophils % (Auto) 0 % (0-2.5); Eosinophils # (Auto) 0.1 Thou/mm3 (0.0-0.5); Eosinophils % (Auto) 0 % (0-10); Hematocrit 32.9 % (36.0-46.0); Hemoglobin 11.3 g/dL (12.0-16.0); Immature Granulocytes % (Auto) 0 % (0-0); Immature Granulocytes Auto 0.06 Thou/mm3 (0.00-0.00); Lymphocytes # (Auto) 2.5 Thou/mm3 (1.0-4.8); Lymphocytes % (Auto) 14 % (10-50); Mean Corpuscular HGB Conc 34.3 g/dl (31.0-37.0); Mean Corpuscular Hemoglobin 29.8 pg (25.0-35.0); Mean Corpuscular Volume 87 fL (80-100); Monocytes # (Auto) 1.1 Thou/mm3 (0.0-0.8); Monocytes % (Auto) 6 % (0-12); Neutrophils # (Auto) 13.9 Thou/mm3 (1.8-7.7); Neutrophils % (Auto) 79 % (37-80); Nucleated Red Blood Cell % 0 /100 WBC (0); Platelet Count 222 Thou/mm3 (140-440); RDW Standard Deviation 42.2 fL (36.4-46.3); Red Blood Count 3.79 Miln/mm3 (4.00-5.20); White Blood Count 17.6 Thou/mm3 (3.6-11.0)
[2024-11-12 06:41] LABS: Glucose Estimated Average 103 mg/dL (80-131); Hemoglobin A1C 5.2 % Hgb (4.8-6.0)
[2024-11-12 06:58] LABS: Anion Gap 9 (7-16); BUN/Creatinine Ratio 9 Ratio (12-20); Blood Urea Nitrogen 6 mg/dL (9-23); Calcium 8.1 mg/dL (8.3-10.6); Carbon Dioxide 26.8 mMol/L (20.0-31.0); Chloride 103 mMol/L (98-107); Creatinine (Component) 0.7 mg/dL (0.6-1.3); Estimated Creatinine Clearance 103.8 mL/min (>60); Glucose 92 mg/dL (74-106); HDL Cholesterol 32 mg/dL (40-60); Magnesium 1.9 mg/dL (1.6-2.6); Osmolality,Calculated 275 (275-295); Phosphorous 1.8 mg/dL (2.4-5.1); Potassium 3.2 mMol/L (3.4-5.1); Sodium 139 mMol/L (136-145); Triglycerides 114 mg/dL (30-150); eGFR > 60 See Note
[2024-11-12 08:00] VITALS: BP 121/71; PULSE 104; RESP 17; TEMP 36.1; O2SAT 96
[2024-11-12] MEDS: NAPH,KPH MBDB 1 PACKET (1.5 GM) PO (08:21)
[2024-11-12] MEDS: POTASSIUM CHLORIDE 20 mEq TABCR 40 MEQ PO (08:22)
[2024-11-12] MEDS: ACETAMINOPHEN 325 MG TABLET 650 MG PO (08:22)
[2024-11-12] MEDS: cefTRIAXone 2 GM in SODIUM CHLORIDE 0.9% (Popper) 50 ML IV (08:22)
--- NOTE | 2024-11-12 10:21 | PD.RESPRO ---
Documentation for date of: 11/12/24 Subjective Subjective Interval history: No acute overnight events. Seen and examined at bedside and patient states that her discomfort has improved. However, requesting to change morphine to a different IV pain medication as it is not effective and causes her to have severe headaches. Otherwise, denies fever, chills, sweats and pain location has not changed. Vital signs show mild tachycardia, likely secondary to pain. States that she has been able to urinate without difficulty, denying hematuria, dysuria, cloudy urine. Leukocytosis improved from 26 to 17, hemoglobin dropped from 14 to 11 (suspect hemodilution from IVF), K 3.2 and repleted, phosphorus 1.8 and repleted. Will continue to monitor on IV antibiotics, follow cultures, and anticipate discharge within next 24 to 48 hours. Exam Vital Signs Temp Pulse Resp BP Pulse Ox O2 Del Method 97 F 104 H 17 121/71 96 Room Air 11/12/24 08:00 11/12/24 08:00 11/12/24 08:00 11/12/24 08:00 11/12/24 08:00 11/12/24 08:00 Narrative Exam General: AOx3, no acute distress, able to speak full sentences HEENT: NC/AT, mucous membranes moist, bilateral sclera anicteric Cardiovascular: regular rate and rhythm, S1/S2 present, no murmurs appreciated Pulmonary: clear to auscultation bilaterally, no rales/rhonchi/wheezes Abdominal: soft, non-distended, no rebound/guarding, normal bowel sounds present Musculoskeletal: mild tenderness in left flank, normal ROM, no peripheral edema Skin: left-sided nephrostomy tube placed, warm and dry, intact, no rashes Neuro: CN II-XII intact, no focal deficits Objective Labs 11/12/24 05:03 11/12/24 05:03 Labs: Laboratory Results - last 24 hr 11/12/24 05:03 WBC 17.6 H D RBC 3.79 L Hgb 11.3 L D Hct 32.9 L MCV 87 MCH 29.8 MCHC 34.3 RDW Std Deviation 42.2 Plt Count 222 D Neut % (Auto) 79 Lymph % (Auto) 14 [place] % (Auto) 6 Eos % (Auto) 0 Baso % (Auto) 0 Neut # (Auto) 13.9 H Lymph # (Auto) 2.5 [place] # (Auto) 1.1 H Eos # (Auto) 0.1 Baso # (Auto) 0.0 Immature Gran # (Auto) 0.06 H Absolute Nucleated RBC 0.00 Immature Gran % 0 Nucleated RBC % 0 Sodium 139 Potassium 3.2 L D Chloride 103 Carbon Dioxide 26.8 Anion Gap 9 BUN 6 L Creatinine 0.7 D Estim Creat Clear Calc 103.8 eGFR > 60 BUN/Creatinine Ratio [address] Glucose [address] Glu mg/dL 103 Hemoglobin A1c 5.2 Calculated Osmolality 275 Calcium 8.1 L Phosphorus 1.8 L Magnesium 1.9 Triglycerides 114 HDL Cholesterol 32 L Quality Measures Quality Measures none Assessment & Plan Assessment Current Active Medications: Generic Name Dose Route Start Last Admin Trade Name Freq PRN Reason Stop Dose Admin Acetaminophen 650 mg 11/11/24 17:15 11/12/24 08:22 Acetaminophen 325 Mg Tablet PO 12/11/24 17:14 650 mg Q6H PRN Administration PAIN 1-3 OR FEVER > 100.4 Hydromorphone HCl 0.5 mg 11/12/24 10:11 Hydromorphone Inj 2 Mg/Ml Vial IVP 11/17/24 10:10 Q6HR PRN PAIN SCALE 4-10(Mod-Sev Sodium Chloride 1,000 mls @ 125 mls/hr 11/11/24 13:15 11/12/24 10:12 Ns IV 12/11/24 13:14 125 mls/hr .Q8H CATRACHITA Administration Ceftriaxone Sodium 2 gm/ 50 mls @ 100 mls/hr 11/11/24 17:14 11/12/24 08:22 Sodium Chloride IV 11/18/24 17:13 100 mls/hr QDAY CATRACHITA Administration Ondansetron HCl 4 mg 11/11/24 17:15 Ondansetron Inj 2 Mg/Ml Inj 2 Ml IVP 12/11/24 17:14 Q6H PRN NAUSEA OR VOMITING Protocol Plan Soha Goldstein is a 39-year-old female with no significant past medical history who presents with left flank pain for the last few days and admitted for further management of 12 mm uretopelvic stone s/p nephrostomy tube placement. #12 mm left uretopelvc junction calculus s/p nephrostomy tube placement #Left-sided hydronephrosis #? Pyelonephritis Presents with left flank pain for the last few days with associated fever, chills, sweats, nausea and vomiting. Had temp of 100.2 ?F around noon, blood pressures stable but on softer side (90s/50s). WBC 26, creatinine 1.2 (no previous labs), Pro-Omega negative. UA showed turbid urine, 1+ protein, 1+ blood, 33 RBC, 200 WBC, LE positive. CT A/P showed mild to moderate left hydronephrosis with a 12 mm left ureteropelvic junction calculus and a 23 mm left ovarian cyst. Multiple attempts were made to transfer patient to different facility and eventually Dr. Villeda at [facility] in [place] stated the patient does not need transfer and instead needs a nephrostomy tube with IV antibiotics and follow-up outpatient. ? Status post left-sided nephrostomy tube placement ? Ceftriaxone 2 g IV daily ? Follow-up urine cultures ? Follow-up outpatient with Dr. Keenan Hoover on 11/16/2024 at 9 AM ([phone], [address] [place] [id number]) ? Zofran for nausea ? Dilaudid 0.5 mg IV every 6 hours as needed #Hypokalemia #Hypophosphatemia #Hypocalcemia ? Follow-up AM labs and replete as needed #Left ovarian simple cyst #Uterine fibroid degeneration ? Follow-up with [facility] outpatient Hospital management: Disposition: IV antibiotics, pending cultures Diet: regular Lines: PIV, nephrostomy tube DVT prophylaxis: SCDs GI prophylaxis: not indicated CODE STATUS: full code ----- Plan discussed with attending physician Dr. Joey Lawrence MD PGY-1 Internal Medicine Attending Provider Attestation/Addendum I attest that I was physically present for the evaluation, physical examination, lab and imaging review of the patient with the residents. I discussed the case with the residents and agree with the findings and plans of care as documented above. Patient states she is feeling better compared to yesterday and denies new complaints. She continues to have mild discomfort on her flank but better compared to yesterday. WBC count has been improving. Had some electrolyte imbalances, repleted accordingly. Awaiting culture results. Yola Cook MD
[2024-11-12] MEDS: CALCIUM CARBONATE 600 MG TABLET PO (10:25)
[2024-11-12] MEDS: HYDROmorphone INJ 2 MG/ML VIAL 0.5 MG IVP ×2 (10:25→21:49)
[2024-11-12 10:27] LABS: Cholesterol 129 mg/dL (132-200); LDL Cholesterol,Calculated 74 mg/dL (0-130)
[2024-11-12 12:00] VITALS: BP 107/76; PULSE 89; RESP 17; TEMP 36; O2SAT 96
[2024-11-12 16:00] VITALS: BP 110/68; PULSE 94; RESP 18; TEMP 36.2; O2SAT 97
[2024-11-12] MEDS: HYDROcodone/APAP 5/325 TABLET 1 TAB PO (16:53)
[2024-11-12 20:00] VITALS: BP 119/81; PULSE 97; RESP 18; TEMP 36.1; O2SAT 99
[2024-11-13] VITALS: BP 110/64; PULSE 88; RESP 18; TEMP 36.2; O2SAT 100
[2024-11-13 04:00] VITALS: BP 109/67; PULSE 84; RESP 18; TEMP 36.1; O2SAT 97
[2024-11-13 05:31] LABS: Basophils # (Auto) 0.1 Thou/mm3 (0.0-0.2); Basophils % (Auto) 0 % (0-2.5); Eosinophils # (Auto) 0.2 Thou/mm3 (0.0-0.5); Eosinophils % (Auto) 1 % (0-10); Hematocrit 33.2 % (36.0-46.0); Hemoglobin 11.4 g/dL (12.0-16.0); Immature Granulocytes % (Auto) 0 % (0-0); Immature Granulocytes Auto 0.04 Thou/mm3 (0.00-0.00); Lymphocytes # (Auto) 2.8 Thou/mm3 (1.0-4.8); Lymphocytes % (Auto) 19 % (10-50); Mean Corpuscular HGB Conc 34.3 g/dl (31.0-37.0); Mean Corpuscular Hemoglobin 29.3 pg (25.0-35.0); Mean Corpuscular Volume 85 fL (80-100); Monocytes % (Auto) 7 % (0-12); Neutrophils # (Auto) 10.4 Thou/mm3 (1.8-7.7); Neutrophils % (Auto) 72 % (37-80); Nucleated Red Blood Cell % 0 /100 WBC (0); Platelet Count 264 Thou/mm3 (140-440); RDW Standard Deviation 41.4 fL (36.4-46.3); Red Blood Count 3.89 Miln/mm3 (4.00-5.20); White Blood Count 14.5 Thou/mm3 (3.6-11.0)
[2024-11-13 05:56] LABS: Anion Gap 11 (7-16); BUN/Creatinine Ratio 7 Ratio (12-20); Blood Urea Nitrogen < 5 mg/dL (9-23); Carbon Dioxide 25.5 mMol/L (20.0-31.0); Chloride 99 mMol/L (98-107); Creatinine (Component) 0.7 mg/dL (0.6-1.3); Estimated Creatinine Clearance 103.8 mL/min (>60); Glucose 103 mg/dL (74-106); Magnesium 1.9 mg/dL (1.6-2.6); Osmolality,Calculated 267 (275-295); Phosphorous 3.3 mg/dL (2.4-5.1); Potassium 3.4 mMol/L (3.4-5.1); Sodium 135 mMol/L (136-145); eGFR > 60 See Note
[2024-11-13 08:00] VITALS: BP 114/68; PULSE 82; RESP 18; TEMP 36.2; O2SAT 97
[2024-11-13] MEDS: HYDROmorphone INJ 2 MG/ML VIAL 0.5 MG IVP (08:55)
[2024-11-13] MEDS: cefTRIAXone 2 GM in SODIUM CHLORIDE 0.9% (Popper) 50 ML IV (08:56)
--- NOTE | 2024-11-13 10:14 | PD.RESPRO ---
Documentation for date of: 11/13/24 Exam Vital Signs Temp Pulse Resp BP Pulse Ox O2 Del Method 97.1 F 82 18 114/68 97 Room Air 11/13/24 08:00 11/13/24 08:00 11/13/24 08:00 11/13/24 08:00 11/13/24 08:00 11/13/24 08:00 Objective Labs 11/13/24 05:09 11/13/24 05:09 Labs: Laboratory Results - last 24 hr 11/12/24 11/13/24 05:03 05:09 WBC 14.5 H RBC 3.89 L Hgb 11.4 L Hct 33.2 L MCV 85 MCH 29.3 MCHC 34.3 RDW Std Deviation 41.4 Plt Count 264 D Neut % (Auto) 72 Lymph % (Auto) 19 [place] % (Auto) 7 Eos % (Auto) 1 Baso % (Auto) 0 Neut # (Auto) 10.4 H Lymph # (Auto) 2.8 [place] # (Auto) 1.0 H Eos # (Auto) 0.2 Baso # (Auto) 0.1 Immature Gran # (Auto) 0.04 H Absolute Nucleated RBC 0.00 Immature Gran % 0 Nucleated RBC % 0 Sodium 135 L Potassium 3.4 Chloride 99 Carbon Dioxide 25.5 Anion Gap 11 BUN < 5 L Creatinine 0.7 Estim Creat Clear Calc 103.8 eGFR > 60 BUN/Creatinine Ratio 7 L Glucose 103 Calculated Osmolality 267 L Calcium 9.0 Phosphorus 3.3 Magnesium 1.9 Cholesterol 129 L LDL Cholesterol, Calc 74 Cholesterol/HDL Ratio 4.0 Quality Measures Quality Measures none Assessment & Plan Assessment Current Active Medications: Generic Name Dose Route Start Last Admin Trade Name Freq PRN Reason Stop Dose Admin Acetaminophen 650 mg 11/11/24 17:15 11/12/24 08:22 Acetaminophen 325 Mg Tablet PO 12/11/24 17:14 650 mg Q6H PRN Administration PAIN 1-3 OR FEVER > 100.4 Hydrocodone Bitart/Acetaminophen 1 tab 11/12/24 15:51 11/12/24 16:53 Hydrocodone/Apap 5/325 Tablet PO 11/17/24 15:50 1 tab Q6HR PRN Administration PAIN SCALE 4-6 (Moderate Hydromorphone HCl 0.5 mg 11/12/24 15:51 11/13/24 08:55 Hydromorphone Inj 2 Mg/Ml Vial IVP 11/17/24 10:10 0.5 mg Q6HR PRN Administration PAIN SCALE 7-10 (Severe Ceftriaxone Sodium 2 gm/ 50 mls @ 100 mls/hr 11/11/24 17:14 11/13/24 08:56 Sodium Chloride IV 11/18/24 17:13 100 mls/hr QDAY CATRACHITA Administration Ondansetron HCl 4 mg 11/11/24 17:15 Ondansetron Inj 2 Mg/Ml Inj 2 Ml IVP 12/11/24 17:14 Q6H PRN NAUSEA OR VOMITING Protocol
--- NOTE | 2024-11-13 10:14 | PD.RESDS ---
Planned Discharge Date 11/13/24 DS: Providers Provider Date of admission: 11/11/24 17:14 Primary care physician: Physician No Primary/Family Admitting Provider: Yola Cook MD Attending Provider on Admission: Yola Cook MD Attending Provider on DC: Lio Lawrence MD Discharging Provider: Lio Lawrence MD DS: Diagnosis Problem List Completed Was Problem List Reviewed/Reconciled?: Yes Hospital Course Hospital Course Hospital course: Soha Goldstein is a 39-year-old female with no significant past medical history who presents with left flank pain for the last few days with associated fever, chills, sweats, nausea and vomiting. States that flank pain radiates to left groin and has cramping in lower quadrants but denies gross hematuria or dysuria. Of note, she went to the ED in [place] a couple of years ago where CT scan was and she does not member being told about any stones at that time. In May 2024 she felt left flank pain and went to urgent care and was given pain medications and antibiotics. Since May, she has felt intermittent left flank pain but has never gone this severe, which prompted her to come to the ED. She also used to take a supplement but ran out within the last week and cannot recall what the supplement was. In the ED, vital signs stable but she did have a temperature of 100.2 ?F around noon, blood pressures stable but on softer side (90s/50s). WBC 26, creatinine 1.2 (no previous labs), Pro-Omega negative. UA showed turbid urine, 1+ protein, 1+ blood, 33 RBC, 200 WBC, LE positive. CT A/P showed mild to moderate left hydronephrosis with a 12 mm left ureteropelvic junction calculus and a 23 mm left ovarian cyst. Multiple attempts were made to transfer patient to different facility and eventually Dr. Villeda at [facility] in [place] stated the patient does not need transfer and instead needs a nephrostomy tube with IV antibiotics and follow-up outpatient. Nephrostomy tube was placed and patient will be admitted for further management. In ED received ceftriaxone x 1, Zosyn x 1, and 3 L IV fluid. Patient was started on 2 g IV ceftriaxone, IVF, and morphine for pain. Throughout hospital course, there were no acute events and patient remained afebrile, leukocytosis continued to downtrend, and on day of discharge urine cultures were positive for GNR. Morphine was changed to Dilaudid as morphine was giving her headaches and not addressing her pain adequately. Vital signs remained stable, WBC down trended from 26 to 14, creatinine decreased from 1.2 to 0.7, and electrolyte derangements were corrected. Patient denied any nausea, vomiting, fever, chills, or worsening in her flank pain was able to urinate without difficulty, denying hematuria, dysuria as well. Left-sided nephrostomy tube in place, C/D/I. Patient instructed to follow-up with Dr. Hoover on 11/16/2024 in [place] for urological follow-up and will be discharged with a 9-day course of cefixime with strict return precautions to the ED. Diagnoses during admission: #12 mm left uretopelvc junction calculus s/p nephrostomy tube placement #Left-sided hydronephrosis #? Pyelonephritis #Hypokalemia #Hypophosphatemia #Hypocalcemia #Left ovarian simple cyst #Uterine fibroid degeneration Discharge instructions: ? Take cefixime 400 mg daily for 9 more days to complete your antibiotic course ? Take ibuprofen as needed up to three times per day ? Continue taking all other home medications as prescribed ? Follow-up with Primary Care Provider within 1-2 weeks of discharge ? Recommend to obtain referral to talend etl developer for incidental cyst and fibroids seen on US ? If you do not have a Primary Care Provider, you can follow-up at the [facility] (you can call [phone] to make an appointment) ? If you wish to follow-up with Dr. Lawrence, schedule appointment on Thursday afternoons ? Return to Emergency Department if symptoms worsen or recur ? Please follow up with Dr. Derick Hoover (urologist) on Saturday, November 16, 2024 at 9:00 am. Address: [address] [place] [address]. Office number: [phone]. ----- Plan discussed with attending physician Dr. Joey Lawrence MD PGY-1 Internal Medicine Time Spent with Patient Time attestation: Total time spent providing and/or coordinating discharge services: Time spent: Greater than 30 minutes Exam Vital Signs Temp Pulse Resp BP Pulse Ox O2 Del Method 97.1 F 82 18 114/68 97 Room Air 11/13/24 08:00 11/13/24 08:00 11/13/24 08:00 11/13/24 08:00 11/13/24 08:00 11/13/24 08:00 Narrative Exam General: AOx3, no acute distress, able to speak full sentences HEENT: NC/AT, mucous membranes moist, bilateral sclera anicteric Cardiovascular: regular rate and rhythm, S1/S2 present, no murmurs appreciated Pulmonary: clear to auscultation bilaterally, no rales/rhonchi/wheezes Abdominal: soft, non-distended, no rebound/guarding, normal bowel sounds present Musculoskeletal: mild tenderness in left flank, normal ROM, no peripheral edema Skin: left-sided nephrostomy tube placed, warm and dry, intact, no rashes Neuro: CN II-XII intact, no focal deficits Discharge Plan Plan Patient Disposition: HOME (Self Care) Care Plan Goals: ? Take cefixime 400 mg daily for 9 more days to complete your antibiotic course ? Take ibuprofen as needed up to three times per day ? Continue taking all other home medications as prescribed ? Follow-up with Primary Care Provider within 1-2 weeks of discharge ? Recommend to obtain referral to [facility]end etl developer for incidental cyst and fibroids seen on US ? If you do not have a Primary Care Provider, you can follow-up at the [facility] (you can call [phone] to make an appointment) ? If you wish to follow-up with Dr. Lawrence, schedule appointment on Thursday afternoons ? Return to Emergency Department if symptoms worsen or recur ? Please follow up with Dr. Derick Hoover (urologist) on Saturday, November 16, 2024 at 9:00 am. Address: [address] [place] [address]. Office number: [phone]. Prescriptions/Referrals Prescriptions/Med Rec: New cefixime 400 mg capsule 400 mg PO QDAY 9 Days Qty: 9 0RF ibuprofen 600 mg tablet 600 mg PO Q8H PRN (Reason: fever or pain) 5 Days Qty: 15 0RF Referrals: Derick Hoover [Other] - 11/16/24 9:00 am No Primary/Family,Physician [Primary Care Provider] - Patient/Caregiver Discharge Instructions Other Discharge Activity Instructions:: Please follow up with Dr. Derick Hoover urologist on Saturday November 16, 2024 at 0900am. Address [address] [place] [address]. Office number [phone]. Education Materials: Anatomy of the Female Urinary Tract, How Your Kidneys Work, Understanding Kidney Stones, Percutaneous Nephrostomy Dc, Understanding Hydronephrosis, ED Pyelonephritis, Female (Adult) Print Language: Micronesian Stand Alone Forms: [employer] Award Info., Patient Portal Info Letter, Work/Release Restrictions Discharge Order Discharge Orders: Discharge (Routine); Ordered 11/13/24 Ordered By: Lio Sosa [employer] Quality Discharge Quality Measures VTE prophylaxis Attestestation MD Attestation I attest that I was physically present for the evaluation, physical examination, lab and imaging review of the patient with the residents. I discussed the case with the residents and agree with the findings and plans of care as documented above. At bedside today, patient states he is feeling well and does not have any new complaints. Her abdominal pain has been improving, only has mild discomfort. WBC have been downtrending, 14.5 today. Potassium noted to be 3.4, repleted accordingly. Rest of the labs are stable. Patient did not have bowel movement we will add lactulose x 1. Blood culture has been negative for more than 48 hours, urine culture is still pending. Patient has been improving nicely with IV ceftriaxone. Stable for discharge on equivalent dose of cefixime. Recommended to follow-up with PCP and urology in 1 to 2 weeks after discharge. She will be discharged with the nephrostomy tube in place. Yola Cook MD
[2024-11-13 12:00] VITALS: BP 119/86; PULSE 82; RESP 18; TEMP 36.6; O2SAT 97
[2024-11-13] MEDS: LACTULOSE SYRUP 20 GM/30 ML UDC PO (12:11)
[2024-11-13] MEDS: POTASSIUM CHLORIDE 20 mEq TABCR 40 MEQ PO (12:12)
--- NOTE | 2024-11-13 15:38 | PC.SS ---
Late entry Soha Goldstein ?is 39 year old female admitted to [facility] for pyelonephritis. SS conducted bedside contact with the patient to complete initial assessment and to discuss discharge planning.? SW used all precautionary measures to complete initial. Role and reason for the contact was explained to Soha. Pt is alert and oriented times 4. Patient confirmed demographic information and confirmed address listed on facesheet. Pt lives with family. Patient identifies Cece Church, mother, as her surrogate decision maker. Pt states prior to hospitalization she is able to complete ADL?s independently. Pt does not use DME nor Oxygen. Pt confirmed no history of mental health or substance use. Pts PCP is in transition and plans to use the [facility]. Pharmacy of choice is [facility]. Discharge options discussed and the pt return to home. ?Family will provide transportation upon DC. Advance live directive discussed and pt not receptive. No further intervention required at this time, secondary social studies teacher would be available to address any further concerns. DC Plan: Home ? Contact: Cece Church, mother, Address: Confirmed on face sheet PCP: [facility]
--- NOTE | 2024-11-13 15:41 | PC.SS ---
Late entry: SS was asked to visit pt about FMLA paperwork; SS confirmed pt will need to take FMLA paperwork to PCP
== END 2024-11-13 15:01 | disposition home or self-care (01) | DRG 463 ==
LOC: SERX 11-11 17:20 → SERHOLD 11-11 17:40 → S3SX 11-11 18:31
PROVIDERS: Physician Assistant; Admitting Provider Student in an Organized Health Care Education/Training Program; Emergency Provider Emergency Medicine; PCP Student in an Organized Health Care Education/Training Program; Visit Provider Student in an Organized Health Care Education/Training Program
DX: N13.6 Pyonephrosis (principal); N83.292 Other ovarian cyst, left side; D25.9 Leiomyoma of uterus, unspecified; E83.39 Other disorders of phosphorus metabolism; E83.51 Hypocalcemia; E87.6 Hypokalemia
CPT/HCPCS: 36415; 74177; 74425; 76830; 80048; 80053; 80061; 80307; 81001; 81025; 83036; 83605; 83735; 84100; 84145; 85025; 87040; 87077; 87086; 87186; 96361; 96365; 96366; 96367; 96375; 99285; A4649; C1729; C1769; J0696; J1171; J1885; J2270; J2405; J2543; J3010; J3490; J7030; J7050; J7120; Q9958; Q9967; A9270